=== PATIENT | male | born 1960 | race Caucasian/White ===

== ENCOUNTER 2019-11-23 14:27 | Inpatient (IN) ==
--- NOTE | 2019-11-23 15:07 | PROVIDER DOCUMENTATION ---
HPI-General Adult - General Chief Complaint: Chest Pain Stated Complaint: recheck Time Seen by Provider: 11/23/19 14:39 Source: patient Allergies/Adverse Reactions: Patient Allergies Allergy/AdvReac Type Severity Reaction Status Date / Time morphine AdvReac VOMITING Verified 11/23/19 15:30 Home Medications: Home Medication List Medication Instructions Recorded Confirmed Last Taken Type Alprazolam [Xanax] 1 tab PO TID 07/24/19 11/23/19 11/23/19 08:00 History LISINOpril [Prinivil] 1 tab PO DAILY 07/24/19 11/23/19 11/23/19 08:00 History Loratadine [Claritin] 1 cap PO DAILY 07/24/19 11/23/19 11/23/19 08:00 History Phenytoin Sodium Extended 4 cap PO DAILY 07/24/19 11/23/19 11/23/19 08:00 History [Dilantin] - History of Present Illness -Gen Adult Nature of Presenting Problems: Patient is a 59 yo M who was seen earlier today in the ED for acute on chronic neck pain s/p cervical fusion, his pain was adequately controlled with Morphine, plan for transfer back to the Rehab Center was discussed with patient and family who were initially refusing to go back to the Center, Case Management was involved and advised that the patient would have to return to the Rehab center and consult with for transfer, hence he was discharged back to [facility]. Upon arrival to the Rehab center, patient was noted to be on O2 and was reportedly c/o chest pain. Per discussion with Rehab Physician (Dr. Chakraborty), EMS put patient on O2 en route back to the [place] because he started c/o sob in the ambulance. Upon returning to the ED, patient denies complaining of cp and states he was having an anxiety attack because he was told his room at the rehab center was no longer available, he is requesting xanax. VS upon arrival to the ED were abnormal (T 100.3, HR 102, O2 Sat 95 % on 6 lpm supplemental O2, BP 119/69. ABG shows mild hypoxemia. Location of Pain/Injury: reports: neck (Chronic s/p fusion) Associated Symptoms: reports: anxiety Similar Symptoms Previously?: Yes Recently seen or treated by another doctor?: Yes Review of Systems - Adult - REVIEW OF SYSTEMS - ADULT Constitutional: reports: no symptoms reported Eyes: reports: no symptoms reported Ears, Nose, Mouth & Throat: reports: no symptoms reported Cardiovascular: reports: see HPI Respiratory: reports: no symptoms reported Gastrointestinal: reports: no symptoms reported Genitourinary: reports: no symptoms reported Musculoskeletal: reports: see HPI All Other Systems: Reviewed and Negative Past History - Adult - PAST MEDICAL HISTORY-ADULT Review of Records: reports: Old Records Reviewed, Nursing Assessment Review, Medications Reviewed, Social history reviewed & non-contributory. Major Childhood Illnesses: reports: denies history Cardiovascular: reports: HTN Respiratory: reports: denies history Gastrointestinal: reports: denies history Genitourinary: reports: denies history Musculoskeletal: reports: arthritis, chronic pain, neck/back injury Neurological: reports: degenerative disease, headaches/migraines, Seizures/Epilepsy, other (head trauma) Psychiatric: reports: denies history Endocrine/Immune: reports: denies history Other Conditions: reports: denies history - PRIOR SURGERIES/PROCEDURES Surgical/Procedure History: reports: back/neck - IMMUNIZATION STATUS Childhood Immunizations: See Nurse Assessment Flu Vaccine: See Nurse Assessment - FAMILY HISTORY Family History: reviewed, not pertinent - SOCIAL HISTORY Smoking: denies Alcohol Use Frequency: never Living Situation: care facility Physical Exam-General - PHYSICAL EXAM-ADULT Initial Vital Signs Reviewed: Yes (Temperature borderline elevated, mild tachycardia, SPO2 94 % on NC 6 lpm ) - CONSTITUTIONAL General Appearance: no apparent distress - EYES Eyes: PERRL/EOMI - HEAD, EARS, NOSE, MOUTH & THROAT HENMT: normocephalic/atraumatic, moist mucous membranes - NECK Neck: supple, tender midline (+ tenderness over surgical wound, dressing c/d/i, no surrounding erythema) - RESPIRATORY Respiratory: chest non-tender, lungs clear, normal breath sounds - CARDIOVASCULAR Cardiovascular: normal peripheral pulses, no edema, no murmur, tachycardia - GASTROINTESTINAL (ABDOMEN) Abdominal Exam: non tender, soft - LYMPHATIC Lymphatic: no adenopathy - SKIN Integumentary: warm/dry, decubitus (Sacral skin tear) - NEUROLOGIC Neurologic: grossly normal - PSYCHIATRIC Psych/Mental Status: oriented x 3 Progress - PLAN OF CARE/RESULTS Progress/Plan/Lab Results: Well's score = 6, moderate risk for PE due to immobilization, recent surgery, new onset tachycardia, patient additionally requiring supplemental O2 to maintain SPO2 > 92% Result Diagrams: 11/23/19 17:30 11/24/19 05:57 - EKG 1 Time of EKG reading by physician:: 19:10 EKG Read and Signed by:: Irene Pro EKG Interpretation (*Must complete 3 of following elements*): Abnormal Rate: 113 Rhythm: sinus QRS: LBB ST Wave: elevated (V1-V3), depressed (V4-V6) Prior EKG Comparison: changes noted (New peaked T waves in anterior leads and worsening ST elevation V1-V3 and depression V4-V6 when compared to prior ekg dated 07/24/2019) 2 Time of EKG reading by physician:: 21:10 EKG Read and Signed by:: Irene Pro EKG Interpretation (*Must complete 3 of following elements*): Abnormal Rate: 101 Rhythm: Sinus QRS: LBB ST Wave: elevated (V1-V3), depressed (V5-V6) Prior EKG Comparison: changes noted (No significant change from prior) - XRAY 1 XRAY: Bilateral XRAY Study: Chest Impression: See EMR Report (EXAM: CHEST-1 VIEW 11/23/2019 HISTORY: dyspnea TECHNIQUE: AP portable upright at 1519 COMMENT: The inspiration is less optimal than on 07/24/2019. Considering this there has been no appreciable change. IMPRESSION: Poor inspiration. Electronically signed by Ehsan Lanza 11/23/2019 3:29 PM 11/23/19 1529 Interpreting Physician: Ehsan Lanza MD Dictated Date/Time: 11/23/19 1529) - CT/MRI 1 CT Study: other (Thoracic spine) Impression: See EMR Report (EXAM: CT THORACIC SPINE W/CONTRAST 11/23/2019 HISTORY: Fever, recent spinal fusion TECHNIQUE: This exam was performed using automated exposure control, adjustment of mA or kV according to patient size, and/or use of iterative reconstruction technique. COMMENT: There is no evidence of fracture or subluxation. There has been posterior fusion in the lower cervical and upper thoracic spine. There are pedicle screws bilaterally at T2. There is no evidence of fracture or subluxation. No bony erosion is present. IMPRESSION: No evidence of acute bony abnormality. Electronically signed by Ehsan Lanza 11/23/2019 9:57 PM 11/23/19 4223 Interpreting Khadijah sanchez: Ehsan Lanza MD Dictated Date/Time: 11/23/192151) 2 CT Study: Cervical Spine Impression: See EMR Report (EXAM: CT CERVICAL SPINE W/CONTRAST 11/23/2019 HISTORY: spinal fusion, fever TECHNIQUE: This exam was performed using automated exposure control, adjustment of mA or kV according to patient size, and/or use of iterative reconstruction technique. COMMENT: There are no previous studies available for comparison. There has been laminectomy at L2-4. There is erosion of the anterior atlantoaxial joint. There is a cyst posteriorly in the body of C2. There are pedicle screws at C2, C3, C5, C6, T1, and T2 and anterior bone plates are present at C5 level with anterior fusion at C5-6 and C6-7. There is a screw inferiorly apparently within the disc space anteriorly at C7-T1. There is loss of the normal lordotic curvature at the C5-6 and C6-7 levels. Severe bullous emphysema is present particularly in the right upper lobe. There is apical pleural thickening on the left. There is no prevertebral soft tissue swelling. IMPRESSION: Degenerative and postsurgical changes. COPD. Electronically signed by Ehsan Lanza 11/23/2019 9:51 PM 11/23/192150 Interpreting Physician: Ehsan Lanza MD Dictated Date/Time: 11/23/192145) - CONSULTS/PCP/HOSPITALIST Notification #1 *Consult/PCP/Hospitalist*: Dr. Welch (Hospitalist) Time Discussed: 21:55 Consult Disposition: Admit Departure - Departure Date of Disposition Decision: 11/23/19 Time of Disposition Decision: 21:55 DIAGNOSIS: Sepsis due to pneumonia, Hypoxemia, Hyperkalemia, Elevated troponin, Macrocytic anemia, Thrombocytosis, Acute hyponatremia Disposition: ADMITTED INPATIENT 09 Certified Medical Emergency: Emergent Condition: Stable - Critical Care Note This patient required my direct & personal management of CC.: Yes Total Time (mins): 45 Critical Care Statement: This patient required my direct personal management to treat or rule out processes, the absence of which, could potentiallly result in sudden, clinically significant life or limb threatening deterioration. Attestation - Physician/ HELENE Attestation Patient care was provided by Advanced Practice Provider:: No The physician spent face to face time with patient:: Yes Advanced Practice Provider documentation review:: Supervising physician onsite and consulted in the evaluation and care of this patient. The physician did have a face to face encounter with the patient.
[2019-11-23 15:23] LABS: INR 1.09; PROTIME 14.3 Seconds (11.0-16.0)
--- NOTE | 2019-11-23 15:32 | Diag Imaging Result Doc PS360 ---
EXAM: CHEST-1 VIEW 11/23/2019 HISTORY: dyspnea TECHNIQUE: AP portable upright at 1519 COMMENT: The inspiration is less optimal than on 07/24/2019. Considering this there has been no appreciable change. IMPRESSION: Poor inspiration. Electronically signed by Ehsan Lanza 11/23/2019 3:29 PM
[2019-11-23 15:41] LABS: ALLEN TEST YES; BE 1.3 mmoll (-3.0-3.0); BLOOD TYPE ARTERIAL; HCO3-(ACT) 25.7 mmoll (20.0-26.0); METHB 1.2 % (0.0-1.5); O2(CT) 14.6 mL/dL (15.0-23.0); PCO2(98.6) 40 mmHg (35-45); PO2(98.6) 52 mmHg (60-100); SAMPLE BLOOD; SAO2 92.1 % (95.0-100.0); THB 11.7 g/dL (11.5-17.4); pH(98.6) 7.42 (7.35-7.45)
[2019-11-23 15:46] LABS: MODALITY CANNULA
[2019-11-23 15:47] LABS: O2HB 88.7 % (95.0-99.0)
[2019-11-23] MEDS ORDERED: ATIVAN IV ONE ×2 (16:00→22:40)
[2019-11-23] MEDS ORDERED: XANAX PO ONE (16:01)
[2019-11-23 16:25] LABS: URINE SOURCE CLEAN CATCH
[2019-11-23 16:42] LABS: BILIRUBIN URINE NEGATIVE (NEGATIVE); BLOOD URINE TRACE (NEGATIVE); COLOR YELLOW; GLUCOSE URINE NEGATIVE (NEGATIVE); KETONE URINE NEGATIVE (NEGATIVE); LEUKOCYTES URINE NEGATIVE (NEGATIVE); NITRITE URINE NEGATIVE (NEGATIVE); PH URINE 5.5; PROTEIN URINE NEGATIVE (NEGATIVE); SP GRAVITY URINE 1.017; TURBIDITY URINE CLEAR (CLEAR); UROBILINOGEN URINE NORMAL (NORMAL)
[2019-11-23 16:44] LABS: UR EPITHELIAL CELLS <10 /HPF (<10); URINE BACTERIA 1+ /HPF; URINE RBC <10 /HPF (<10); URINE WBC <10 /HPF (<10)
[2019-11-23] MEDS ORDERED: MORPHINE IV ONE (17:48)
[2019-11-23] MEDS ORDERED: ZOFRAN IM ONE (17:48)
[2019-11-23 17:49] LABS: BASO# 0.04 X1000 (0.0-0.2); BASO% 0.5 % (0.0-0.8); EOS# 0.28 X1000 (0.0-0.7); EOS% 3.3 % (0.0-10.0); HEMATOCRIT 33.3 % (42.0-52.0); IMM GRAN# 0.05 X1000 (0.0-0.04); IMM GRAN% 0.6 % (0.0-0.5); LYMPH# 0.75 X1000 (1.2-3.4); LYMPH% 8.8 % (20.5-51.1); MCH 32.9 PG (27-31); MCV 99.7 FL (81-99); MONO# 0.52 X1000 (0.11-0.59); MONO% 6.1 % (1.7-9.3); MPV 8.8 FL (7.4-10.4); NEUT% 80.7 % (42.2-75.2); PLT 567 X1000 (130-400); RBC 3.34 XMIL (4.7-6.1); RDW 13.7 % (11.5-14.5); WBC 8.54 X1000 (4.8-10.8)
[2019-11-23 18:10] LABS: ESTIMATED GFR > 60
[2019-11-23 18:12] LABS: AGAP 14; ALB/GLOB RATIO 1.1; ALBUMIN 3.6 g/dL (3.5-5.0); ALKALINE PHOSPHATASE 134 U/L (32-122); BUN 16 mg/dL (8-22); CALCIUM 9.2 mg/dL (8.8-10.2); CHLORIDE 88 mmol/L (98-107); COSMO 253; CREATININE 0.7 mg/dL (0.7-1.2); GLUCOSE 108 mg/dL (70-104); GOT 29 U/L (10-34); GPT 22 U/L (10-44); POTASSIUM 5.9 mmol/L (3.5-5.1); SODIUM 125 mmol/L (136-145); TCO2 23 mmol/L (25-35); TOTAL BILIRUBIN 0.19 mg/dL (0.20-1.00); TOTAL PROTEIN 6.9 g/dL (6.3-8.3)
[2019-11-23] MEDS ORDERED: KAYEXALATE PO ONE (18:29)
[2019-11-23] MEDS ORDERED: NS 1,600 ML IV ONE (19:35)
[2019-11-23] MEDS ORDERED: ZOSYN 4.5 GM in NS 100 ML IV ONE (19:36)
[2019-11-23] MEDS ORDERED: VANCOMYCIN 1 GM/NS 1 GM/250 ML IVPB IV ONE (19:36)
--- NOTE | 2019-11-23 19:59 | Diag Imaging Result Doc PS360 ---
EXAM: CT ANGIOGRM PULMONARY ARTERIES 11/23/2019 HISTORY: R/o PE TECHNIQUE: This exam was performed using automated exposure control, adjustment of mA or kV according to patient size, and/or use of iterative reconstruction technique. COMMENT: There are no filling defects in the pulmonary arteries. There is no evidence of dissection of the aorta. There is no evidence of aneurysm. No previous studies are available for comparison. There is consolidation in the posterior costophrenic sulcus of both lower lobes particularly the left lower lobe. This may be due to atelectasis and/or pneumonia. There are emphysematous changes in the upper lung zones particularly the right upper lobe. There is a somewhat irregularly shaped opacity in the posterior right apex measuring slightly over 6 mm. This appears to contain some calcification. There is also a pleural-based opacity more inferiorly with less well defined margins. There are postsurgical changes in the upper thoracic spine. No acute bony abnormalities are present. IMPRESSION: No evidence of pulmonary emboli. Nonspecific opacities in the right upper lobe. COPD. Bibasilar atelectasis versus pneumonia. Electronically signed by Ehsan Lanza 11/23/2019 7:56 PM
[2019-11-23] MEDS ORDERED: LEVAQUIN 750 MG/D5W 750 MG/150 ML IVPB IV ONE (20:20)
[2019-11-23] MEDS ORDERED: DUONEB (A & A) INH ONE (20:48)
[2019-11-23] MEDS ORDERED: LOVENOX 1 MG/KG SUBQ ONE (21:16)
[2019-11-23] MEDS ORDERED: LOVENOX SUBQ ONE (21:30)
[2019-11-23] MEDS ORDERED: TYLENOL PO ONE (21:41)
--- NOTE | 2019-11-23 21:54 | Diag Imaging Result Doc PS360 ---
EXAM: CT CERVICAL SPINE W/CONTRAST 11/23/2019 HISTORY: spinal fusion, fever TECHNIQUE: This exam was performed using automated exposure control, adjustment of mA or kV according to patient size, and/or use of iterative reconstruction technique. COMMENT: There are no previous studies available for comparison. There has been laminectomy at L2-4. There is erosion of the anterior atlantoaxial joint. There is a cyst posteriorly in the body of C2. There are pedicle screws at C2, C3, C5, C6, T1, and T2 and anterior bone plates are present at C5 level with anterior fusion at C5-6 and C6-7. There is a screw inferiorly apparently within the disc space anteriorly at C7-T1. There is loss of the normal lordotic curvature at the C5-6 and C6-7 levels. Severe bullous emphysema is present particularly in the right upper lobe. There is apical pleural thickening on the left. There is no prevertebral soft tissue swelling. IMPRESSION: Degenerative and postsurgical changes. COPD. Electronically signed by Ehsan Lanza 11/23/2019 9:51 PM
--- NOTE | 2019-11-23 22:00 | Diag Imaging Result Doc PS360 ---
EXAM: CT THORACIC SPINE W/CONTRAST 11/23/2019 HISTORY: Fever, recent spinal fusion TECHNIQUE: This exam was performed using automated exposure control, adjustment of mA or kV according to patient size, and/or use of iterative reconstruction technique. COMMENT: There is no evidence of fracture or subluxation. There has been posterior fusion in the lower cervical and upper thoracic spine. There are pedicle screws bilaterally at T2. There is no evidence of fracture or subluxation. No bony erosion is present. IMPRESSION: No evidence of acute bony abnormality. Electronically signed by Ehsan Lanza 11/23/2019 9:57 PM
--- NOTE | 2019-11-24 00:42 | EKG Report ---
Test Performed on : 11/23/2019 9:00:31 PM Test Reason : Elevated Troponin Blood Pressure : / mmHG Vent. Rate : 101 BPM Atrial Rate : 101 BPM P-R Int : 132 ms QRS Dur : 132 ms QT Int : 396 ms P-R-T Axes : 067 -53 102 degrees QTc Int : 513 ms Sinus tachycardia. Left axis deviation Left bundle branch block Abnormal ECG When compared with ECG of 23-NOV-2019 19:01, (Unconfirmed) No significant change was found Confirmed by Palmer CHUA, Blaine Tejeda ([id number]) on 11/24/2019 7:24:25 AM
[2019-11-24] MEDS ORDERED: NS 1,000 ML IV ONE (01:10)
[2019-11-24] MEDS ORDERED: VANCOMYCIN IV PER PHARMACY MISC SCH (02:03)
[2019-11-24] MEDS ORDERED: TYLENOL PO PRN (02:03)
[2019-11-24] MEDS: ZOSYN 3.375 GM in NS 50 ML IV SCH ×4 (02:37→19:30)
[2019-11-24] MEDS: LOVENOX SUBQ SCH (02:38)
[2019-11-24] MEDS: DEMEROL IV PRN ×5 (02:38→23:40)
[2019-11-24] MEDS ORDERED: VANCOMYCIN 1,500 MG in NS 250 ML IV ONE (03:00)
--- NOTE | 2019-11-24 05:24 | HISTORY AND PHYSICAL ---
PRIMARY CARE PHYSICIAN: Dr. Neelima Welch CHIEF COMPLAINT: Shortness of breath, chills, chest discomfort. HISTORY OF PRESENTING ILLNESS: A 59-year-old male with a history of hypertension, seizure disorder, who is a quadriplegic, who recently underwent a cervical fusion and was sent to rehab at [facility]. While he was there he developed some shortness of breath, chills and fevers. The patient initially had presented to the emergency department and was discharged back to the [facility]; however, he complained of worsening symptoms and was returned back to the emergency department again. The patient was re-evaluated. He had imaging done which did show possibility of pneumonia. Subsequently he will require admission for further management. During his initial evaluation, he complained of some vague chest pressure discomfort and apparently his EKG showed some abnormalities. Due to these presenting symptoms, he will require admission for further management. At the time of my examination, he denied any headache, nausea, vomiting, diarrhea, hemoptysis, melena, but complained of shortness of breath, chest discomfort, chills and not feeling well. PAST MEDICAL HISTORY: Includes hypertension and seizures.. PAST SURGICAL HISTORY: Cervical fusion several weeks ago, cholecystectomy. ALLERGIES: Morphine current. USUAL MEDICATIONS INCLUDE: Xanax 1 mg p.o. t.i.d., lisinopril 10 mg p.o. daily, phenytoin 100 mg 4 caps p.o. daily. SOCIAL HISTORY: He is a former smoker. No history of alcohol or illicit drug use. FAMILY HISTORY: No history of coronary disease. REVIEW OF SYSTEMS: Fourteen-point review of system listed as in HPI. Other systems negative. PHYSICAL EXAMINATION: GENERAL: Cooperative, friendly male. He is resting more comfortably now. VITAL SIGNS: Temperature 103.2 degrees, pulse 102, respiration 19, blood pressure 105/64. HEENT: Atraumatic, normocephalic. NECK: There is a cervical brace. CHEST: Bibasilar rales. CARDIOVASCULAR: Regular rate and rhythm. ABDOMEN: Soft positive bowel sounds. EXTREMITIES: No edema. NEUROLOGIC: He is awake, alert, oriented x2. EXTREMITIES: Strength 0/5 in all extremities. : No bladder distention. SKIN: Warm. LABORATORIES AND STUDIES: WBCs 8.54, hemoglobin 11.0, hematocrit 33.3, platelets 567,000 sodium 125, potassium 5.9, chloride 88, CO2 is 23, BUN is 16, creatinine 0.7 glucose 108. Troponin shows 29. Pulmonary arteriogram shows nonspecific opacity right upper lobe suggestive of pneumonia. ASSESSMENT: A 59-year-old quadriplegic male who recently underwent cervical fusion, also several weeks ago with a history of hypertension, seizures, presented to emergency department with complaint of shortness of breath, chills, fevers for the past several days. He was evaluated the ED and due to his presenting symptoms he will require admission for further management assessment. 1. Suspected pneumonia. 2. Shortness of breath, abnormal EKG, possible anginal symptoms. 3. Hyponatremia. 4. Quadriplegia, status post recent cervical fusion. 5. Hypertension. PLAN: 1. We will admit patient to medical floor with telemetry. 2. We will check blood cultures. Start patient on IV antibiotics. 3. We will consult Cardiology to evaluate his anginal symptoms. 4. We will continue with gentle hydration. 5. We will continue pain control. 6. We will monitor blood pressure closely, resume antihypertensive agent. 7. We will put we will put patient on DVT prophylaxis with Lovenox. 8. We will continue to follow and reassess, make further recommendation based on patient's clinical course. cc: Sampson Welch MD MTDD
[2019-11-24 06:42] LABS: AGAP 12; BUN 16 mg/dL (8-22); CALCIUM 8.2 mg/dL (8.8-10.2); CHLORIDE 99 mmol/L (98-107); COSMO 268; CREATININE 0.6 mg/dL (0.7-1.2); ESTIMATED GFR > 60; GLUCOSE 105 mg/dL (70-104); POTASSIUM 3.8 mmol/L (3.5-5.1); SODIUM 133 mmol/L (136-145); TCO2 22 mmol/L (25-35)
--- NOTE | 2019-11-24 07:43 | EKG Report ---
Test Performed on : 11/23/2019 7:01:55 PM Test Reason : dyspnea Blood Pressure : / mmHG Vent. Rate : 113 BPM Atrial Rate : 113 BPM P-R Int : 124 ms QRS Dur : 130 ms QT Int : 360 ms P-R-T Axes : 067 -56 093 degrees QTc Int : 493 ms Sinus tachycardia. Left axis deviation Left bundle branch block Abnormal ECG When compared with ECG of 24-JUL-2019 12:21, Vent. rate has increased BY 39 BPM Unconfirmed Result
[2019-11-24] MEDS: XANAX PO SCH ×3 (08:23→19:30)
[2019-11-24] MEDS: DILANTIN PO SCH (08:24)
[2019-11-24 08:51] LABS: BASO# 0.02 X1000 (0.0-0.2); BASO% 0.2 % (0.0-0.8); EOS# 0.05 X1000 (0.0-0.7); EOS% 0.5 % (0.0-10.0); HEMATOCRIT 25.1 % (42.0-52.0); HEMOGLOBIN 7.9 g/dL (14.0-18.0); IMM GRAN# 0.03 X1000 (0.0-0.04); IMM GRAN% 0.3 % (0.0-0.5); LYMPH# 1.02 X1000 (1.2-3.4); LYMPH% 11.1 % (20.5-51.1); MCH 31.3 PG (27-31); MCHC 31.5 g/dL (33-37); MCV 99.6 FL (81-99); MONO# 0.88 X1000 (0.11-0.59); MONO% 9.6 % (1.7-9.3); MPV 8.9 FL (7.4-10.4); NEUT# 7.21 X1000 (1.4-6.5); NEUT% 78.3 % (42.2-75.2); PLT 457 X1000 (130-400); RBC 2.52 XMIL (4.7-6.1); RDW 13.6 % (11.5-14.5); WBC 9.21 X1000 (4.8-10.8)
--- NOTE | 2019-11-24 12:13 | PROGRESS NOTE ---
DATE: 11/24/2019 SUBJECTIVE: Mr. Weaver was admitted early this morning. His primary care doctor is Dr. Nahum Welch. He came in with shortness of breath, chills, chest discomfort. This is a 59-year-old with a history of hypertension, history of seizure disorder. He is quadriplegic. Recently underwent cervical fusion, was sent to rehab at [facility]. While he was there, he developed shortness of breath, chills and fever. The patient initially presented to the emergency department and was sent back to [facility]. However, he complained of worsening symptoms and returned back to the emergency room. Patient evaluated. Imaging done that showed possibility of pneumonia. Subsequently was admitted. OBJECTIVE: General: He on exam he was resting. His mother said he looks more comfortable than yesterday and he seemed to be breathing comfortably. Vital Signs: He did have a temperature of 101.5 degrees, presently afebrile, pulse 90, respirations 17, blood pressure 98/64. HEENT: Pupils are equal and round. Lungs: Clear in all lung holm. Cardiovascular: Regular rate without murmur or S3. Abdomen: Soft. Skin: Warm and dry. LABORATORY DATA: Review of his lab on admission white count 8540, hematocrit is 33, hemoglobin 11 with an MCV of 99, platelet count 567,000. Sodium was a little low yesterday at 125, this morning is 133. Potassium was a little high at 5.9, today it is 3.8, bicarb 22, BUN 16, creatinine 0.6. ProTime 14.3, PTT is 33. Urinalysis unremarkable except for 1+ bacteria. Blood gas pH was 7.42, pCO2 is 40, PO2 is 52, O2 saturation is 88% that is on 28% FiO2. Cervical spine CT, degenerative and postsurgical changes and COPD. Chest x-ray, poor inspiration, expiration less than optimal compared to 07/24/2019. No appreciable changes. Pulmonary arteriogram no evidence of pulmonary emboli. Nonspecific opacities right upper lobe, COPD, bibasilar atelectasis versus pneumonia. Thoracic spine, no evidence of acute abnormality. ASSESSMENT AND PLAN: 1. A 59-year-old quadriplegic male recently underwent cervical fusion several weeks ago and a history of hypertension and seizures, presented to the emergency department complaining shortness of breath and re-presented and suspect he has bibasilar pneumonia, so treating with antibiotics and bronchodilators. 2. Shortness of breath and abnormal EKG, but really I do not believe this is anginal type symptoms and no sign of cardiac ischemia at this time. 3. Hyponatremia, which was mild, has resolved. 4. Quadriplegic status post recent cervical fusion. 5. Hypertension. REVIEW OF ORDERS: Review of his current orders, he is on Xanax 1 mg p.o. t.i.d., Lovenox 40 mg subcutaneous daily, Prinivil 10 mg a day, Dilantin 400 mg p.o. daily, they put him on vancomycin 1200 mg IV q.24 hours, 3.375 g IV q.6, Xanax 0.25 mg, they gave 1 dose yesterday and he appears to be doing better clinically. cc: MD Sampson Maldonado MD
[2019-11-24] MEDS: PRINIVIL PO SCH (12:54)
[2019-11-24] MEDS: DUONEB (A & A) INH SCH ×3 (15:39→23:42)
[2019-11-25] MEDS: LOVENOX SUBQ SCH (01:47)
[2019-11-25] MEDS: ZOSYN 3.375 GM in NS 50 ML IV SCH ×4 (01:47→20:46)
[2019-11-25] MEDS: DUONEB (A & A) INH SCH ×6 (03:34→23:07)
[2019-11-25] MEDS: DEMEROL IV PRN ×4 (03:39→18:34)
[2019-11-25] MEDS: VANCOMYCIN 1,200 MG in NS 250 ML IV SCH (03:39)
[2019-11-25] MEDS ORDERED: ZOSYN ONE (05:23)
--- NOTE | 2019-11-25 08:00 | PROGRESS NOTE ---
DATE: 11/25/2019 SUBJECTIVE: Mr. Weaver is more awake. He says he is breathing about the same. He is having anxiety attack is what he reports and he usually takes his Xanax every day. Also requesting his pain medicine. His bowels moved yesterday. OBJECTIVE: Vital signs: Temperature 98.6 degrees, pulse 96, respirations 22, blood pressure 126/68. HEENT: Pupils are equal and round. Neck: He has a neck brace on. Lungs: Clear anterolateral. Cardiovascular: Regular rhythm and rate without murmur or S3. Abdomen: Soft. No pedal edema. ASSESSMENT AND PLAN: 1. A 59-year-old quadriplegic male underwent cervical fusion several weeks ago, history of hypertension and seizures, presented to the emergency room complaining of shortness of breath and it looked like he may have bibasilar pneumonia. Treating him with antibiotics and bronchodilators. Clinically he seems to be doing better. 2. He has general anxiety and he has panic attacks and he feels like a lot of this is his anxiety. The patient feels this way, so he is back on his Xanax. 3. Hyponatremia which was mild has resolved. 4. Quadriplegic status post recent cervical fusion. 5. Hypertension. He has no Hancock catheter in place. REVIEW OF ORDERS: Reviewing his medication, he takes Xanax 1 mg t.i.d., Prinivil 10 mg a day, Demerol 25 mg IV q.4 hours p.r.n. pain, Dilantin 400 mg p.o. daily. He is on vancomycin and Zosyn. No new lab this morning. We will check CBC and basic metabolic profile and magnesium again in the morning. cc: MD Sampson Maldonado MD
[2019-11-25] MEDS: XANAX PO SCH ×3 (08:04→17:08)
[2019-11-25] MEDS: DILANTIN PO SCH (08:58)
[2019-11-25] MEDS: PRINIVIL PO SCH (08:59)
[2019-11-25] MEDS: PERCOCET-10 PO PRN ×2 (15:11→20:47)
[2019-11-26] MEDS: ZOFRAN IV PRN (00:12)
[2019-11-26] MEDS: DEMEROL IV PRN ×5 (00:12→23:15)
[2019-11-26] MEDS: LOVENOX SUBQ SCH (01:35)
[2019-11-26] MEDS: ZOSYN 3.375 GM in NS 50 ML IV SCH ×4 (01:35→19:45)
[2019-11-26] MEDS: PERCOCET-10 PO PRN ×4 (02:01→21:42)
[2019-11-26] MEDS: VANCOMYCIN 1,200 MG in NS 250 ML IV SCH (02:13)
[2019-11-26] MEDS: DUONEB (A & A) INH SCH ×6 (03:38→22:36)
--- NOTE | 2019-11-26 07:32 | Diag Imaging Result Doc PS360 ---
EXAM: CHEST-PORTABLE 11/26/2019 HISTORY: pneumonia TECHNIQUE: AP portable at 0633 COMMENT: There is ill-defined opacity in the left perihilar region which is worse than on 11/23/2019. There is increased opacification of the left lower lobe. IMPRESSION: Worsened pulmonary edema versus pneumonia. Electronically signed by Ehsan Lanza 11/26/2019 7:30 AM
[2019-11-26 08:04] LABS: AGAP 13; BUN 9 mg/dL (8-22); CALCIUM 8.7 mg/dL (8.8-10.2); CHLORIDE 98 mmol/L (98-107); COSMO 265; CREATININE 0.6 mg/dL (0.7-1.2); ESTIMATED GFR > 60; GLUCOSE 98 mg/dL (70-104); MAGNESIUM 1.9 mg/dL (1.5-2.7); SODIUM 133 mmol/L (136-145); TCO2 22 mmol/L (25-35)
[2019-11-26 08:20] LABS: BASO# 0.11 X1000 (0.0-0.2); BASO% 1.5 % (0.0-0.8); EOS# 0.49 X1000 (0.0-0.7); EOS% 6.8 % (0.0-10.0); HEMATOCRIT 25.8 % (42.0-52.0); HEMOGLOBIN 8.2 g/dL (14.0-18.0); IMM GRAN# 0.02 X1000 (0.0-0.04); IMM GRAN% 0.3 % (0.0-0.5); LYMPH# 1.48 X1000 (1.2-3.4); LYMPH% 20.5 % (20.5-51.1); MCH 32.4 PG (27-31); MCHC 31.8 g/dL (33-37); MONO# 0.51 X1000 (0.11-0.59); MONO% 7.1 % (1.7-9.3); MPV 9.3 FL (7.4-10.4); NEUT# 4.61 X1000 (1.4-6.5); NEUT% 63.8 % (42.2-75.2); PLT 462 X1000 (130-400); RBC 2.53 XMIL (4.7-6.1); RDW 13.9 % (11.5-14.5); WBC 7.22 X1000 (4.8-10.8)
[2019-11-26] MEDS: XANAX PO SCH ×3 (08:23→18:12)
[2019-11-26] MEDS: DILANTIN PO SCH (08:23)
[2019-11-26] MEDS: PRINIVIL PO SCH (08:23)
--- NOTE | 2019-11-26 08:51 | PROGRESS NOTE ---
DATE: 11/26/2019 SUBJECTIVE: Mr. Weaver says he feels better. His pain is under better control. He feels like he is breathing better. He did have a temperature of 101 degrees yesterday. We talked about importance of really breathing deep and expanding his lungs. OBJECTIVE: Vital signs: T-max was 101.1 degrees, pulse 90, respirations 20, blood pressure 122/69. HEENT: Pupils are equal and round. Lungs: Clear in all lung holm. Cardiovascular: Regular rhythm and rate without murmur or S3. Abdomen: Soft. Skin: Warm and dry. IMAGING: His chest x-ray from this morning, worsened pulmonary edema versus pneumonia. ASSESSMENT AND PLAN: 1. This is a 59-year-old quadriplegic male, underwent cervical fusion several weeks ago, history of hypertension and seizures, who presented to the emergency room complaining of shortness of breath. We are treating him for bilateral basilar pneumonia. Clinically he appears to be doing better. He still has fever. He is not ready for discharge. We are going to continue antibiotics. 2. General anxiety with panic attacks. 3. Hyponatremia on presentation which resolved. 4. Quadriplegic status post cervical fusion. 5. Hypertension. 6. He has a Hancock catheter in place. 7. His blood cultures with no growth after 48 hours. X-ray still with some pulmonary edema versus pneumonia. Suspect clinically this is pneumonia. Continue Zosyn and vancomycin. His hematocrit is 25, hemoglobin 8.2 with an MCV of 102, and his pre-albumin was 10.4. I am going to check B12 and folate levels and continue present treatment. cc: MD Sampson Maldonado MD
[2019-11-27] MEDS: ZOSYN 3.375 GM in NS 50 ML IV SCH ×5 (02:04→20:34)
[2019-11-27] MEDS: LOVENOX SUBQ SCH (02:04)
[2019-11-27] MEDS: DUONEB (A & A) INH SCH ×6 (03:26→22:53)
[2019-11-27 04:10] LABS: FREE T4 1.18 ng/dL (0.93-1.70); TSH 3.94 uIUmL (0.27-4.20)
[2019-11-27] MEDS: PERCOCET-10 PO PRN ×3 (04:37→17:12)
[2019-11-27] MEDS: VANCOMYCIN 1 GM/NS 1 GM/250 ML IVPB IV SCH ×2 (04:37→17:56)
[2019-11-27] MEDS: DEMEROL IV PRN ×3 (05:41→20:33)
[2019-11-27] MEDS: PRINIVIL PO SCH (08:50)
[2019-11-27] MEDS: XANAX PO SCH ×3 (08:50→17:27)
[2019-11-27] MEDS: DILANTIN PO SCH (08:50)
--- NOTE | 2019-11-27 09:03 | PROGRESS NOTE ---
DATE: 11/27/2019 SUBJECTIVE: Mr. Weaver is doing better. He feels better. His breathing is better. He is much more comfortable. We are going to get some physical therapy involved. He has been accepted at [facility]. We will aim for that on Saturday. I think he needs another 48 hours of antibiotics, and I think his pneumonia is improving. OBJECTIVE: On exam, temperature 98 degrees, pulse 84, respirations 16, and blood pressure 117/83. Pupils are equal and round. Lungs are clear in all lung holm. Cardiovascular exam with regular rhythm and rate without murmur or S3. Abdomen is soft. Skin is warm and dry. DIAGNOSTIC: Chest x-ray from this morning with worsened pulmonary edema versus pneumonia. Ill- defined opacity left perihilar region that seems to be worse than 11/23. ASSESSMENT AND PLAN: 1. A 59-year-old quadriplegic male who underwent cervical fusion several weeks ago with history of hypertension and seizures presented to the emergency room complaining of shortness of breath. We are treating him for bilateral basilar pneumonia and some atelectasis. He seems to be doing a little better even though radiographically looks a little worse. 2. General anxiety and panic attacks. 3. Hyponatremia on presentation, resolved. 4. Quadriplegic status post cervical fusion. 5. Hypertension. 6. He has a Hancock catheter in place. 7. His blood cultures from the show no growth. REVIEW OF ORDERS: He is on Lovenox 40 mg subcutaneous q.24 hours, Xanax 1 mg p.o. t.i.d., Prinivil 10 mg a day. Getting Demerol 25 mg IV q.4 hours p.r.n., oxycodone 10 mg q.6 hours p.r.n., Dilantin 400 mg daily, vancomycin 1 g IV q.12, piperacillin 3.375 g IV q.6 hours. I will recheck a chest x-ray tomorrow. Note, he has an anemia that is normocytic. Hematocrit 25, hemoglobin 8.2, and white count is 7220. Sodium is 133, potassium 4.0, chloride 98, BUN 9, and creatinine 0.6. Vitamin B12 was above 1000. His thyroid looked normal. cc: MD Sampson Maldonado MD
[2019-11-27] MEDS: ZOFRAN IV PRN (20:33)
[2019-11-27] MEDS ORDERED: NICODERM PATCH TD PRN (21:26)
[2019-11-28] MEDS: DEMEROL IV PRN ×6 (01:04→21:53)
[2019-11-28] MEDS: LOVENOX SUBQ SCH (01:05)
[2019-11-28] MEDS: PERCOCET-10 PO PRN ×3 (02:47→20:49)
[2019-11-28] MEDS: ZOSYN 3.375 GM in NS 50 ML IV SCH ×5 (02:47→20:53)
[2019-11-28] MEDS: VANCOMYCIN 1 GM/NS 1 GM/250 ML IVPB IV SCH ×2 (03:30→18:20)
[2019-11-28] MEDS: DUONEB (A & A) INH SCH ×6 (03:38→22:55)
[2019-11-28] MEDS: XANAX PO SCH ×3 (08:26→17:44)
[2019-11-28] MEDS: PRINIVIL PO SCH (08:26)
[2019-11-28] MEDS: DILANTIN PO SCH (08:26)
--- NOTE | 2019-11-28 09:14 | PROGRESS NOTE ---
DATE: 11/28/2019 SUBJECTIVE: Mr. Weaver says he feels good. He feels stronger. Breathing is comfortable. He sat up in a chair some and wants to do some more today. He is comfortable. His bowels did not move yet, but he does not feel uncomfortable right now. OBJECTIVE: Vital signs: Temperature 98 degrees, pulse 90, respirations 20, blood pressure 136/76. HEENT: Pupils are equal and round. Lungs: Clear anterolateral. Cardiovascular: Regular rhythm and rate without murmur or S3. Abdomen: Soft. Skin: Warm and dry. Neck: Has a neck brace on. Urine output: 2100 mL. ASSESSMENT AND PLAN: 1. A 59-year-old quadriplegic male who underwent cervical fusion several weeks ago, history of hypertension and history of seizures, presented with what appears to be bibasilar pneumonia and some dyspnea. He has atelectasis both bases and clinically seems to be improving. Continue present antibiotics and pulmonary hygiene. 2. General anxiety and panic attacks. That seems to be controlled. 3. Presented with hyponatremia. This is resolved. 4. Quadriplegic status post cervical fusion. 5. Hypertension. 6. He has a chronic Hancock catheter placement. 7. Blood cultures since the still with no growth. REVIEW OF LAB: His lab reviewed from the . Electrolytes look good. Continue to encourage nutrition. REVIEW OF HIS ORDERS: He is on Xanax 1 mg p.o. t.i.d., lisinopril 10 mg a day, Demerol 25 mg IV q.4 hours p.r.n., nicotine patch 21 mg daily, oxycodone 10 mg q.6 hours p.r.n., Dilantin 400 mg a day, vancomycin 1 g IV q.12, piperacillin 3.375 g IV q.6 hours, and he is on albuterol ipratropium breathing treatments. Continue physical therapy. cc: MD Sampson Maldonado MD
--- NOTE | 2019-11-28 10:38 | Diag Imaging Result Doc PS360 ---
EXAM: CHEST-PORTABLE INDICATION: pneumonia TECHNIQUE: One view COMPARISON: 11/26/2019 FINDINGS: There has been interval improvement of the left perihilar opacity seen on the previous study. No new consolidation is identified. Cardiac silhouette is stable. IMPRESSION: Interval improvement of left perihilar infiltrate. Electronically signed by Jono Feldman 11/28/2019 10:36 AM
[2019-11-29] MEDS: DEMEROL IV PRN ×5 (02:34→23:54)
[2019-11-29] MEDS: ZOSYN 3.375 GM in NS 50 ML IV SCH ×6 (02:35→23:55)
[2019-11-29] MEDS: LOVENOX SUBQ SCH (02:35)
[2019-11-29] MEDS: VANCOMYCIN 1 GM/NS 1 GM/250 ML IVPB IV SCH ×2 (03:16→05:02)
[2019-11-29] MEDS: DUONEB (A & A) INH SCH ×6 (03:23→23:47)
[2019-11-29] MEDS: DILANTIN PO SCH (08:08)
[2019-11-29] MEDS: PRINIVIL PO SCH (08:08)
[2019-11-29] MEDS: XANAX PO SCH ×3 (08:09→17:09)
[2019-11-29] MEDS ORDERED: MILK OF MAGNESIA PO PRN (09:09)
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
[2019-11-29] MEDS: PERCOCET-10 PO PRN ×3 (11:01→23:17)
[2019-11-29] MEDS: METAMUCIL PO SCH (14:14)
[2019-11-30] MEDS: LOVENOX SUBQ SCH (02:33)
[2019-11-30] MEDS: DEMEROL IV PRN ×2 (02:34→06:17)
[2019-11-30] MEDS: DUONEB (A & A) INH SCH ×3 (03:35→11:30)
[2019-11-30] MEDS: ZOSYN 3.375 GM in NS 50 ML IV SCH ×3 (06:17→13:31)
[2019-11-30] MEDS: PERCOCET-10 PO PRN ×2 (06:26→13:29)
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
--- NOTE | 2019-11-30 09:05 | DISCHARGE SUMMARY ---
ADMISSION DATE: 11/24/2019 DISCHARGE DATE: ADDENDUM: He is having situational anxiety, and he has had a long history of anxiety, but more frequent panic attacks. He is on Xanax at 1 mg 3 times a day. Also of note, the first time he had a seizure was at age 34. He has not had any recent seizures, and we will continue him on his Dilantin. cc: MD Sampson Maldonado MD
[2019-11-30] MEDS: DILANTIN PO SCH (09:36)
[2019-11-30] MEDS: PRINIVIL PO SCH (09:37)
[2019-11-30] MEDS: METAMUCIL PO SCH (09:37)
[2019-11-30] MEDS: XANAX PO SCH ×2 (09:43→13:30)
[2019-11-30 11:17] VITALS: BP 134/93
== END 2019-11-30 15:13 | DRG 193 ==
LOC: SUPCPDRO → ED 14:27 → 4N 11-24 01:11 → SUATTDRO 11-24 01:11 → 4N 11-29 23:07
PROVIDERS: ADMIT Emergency Medicine; ATTEND Emergency Medicine